=== PATIENT | male | born 1960 | race Caucasian/White ===

== ENCOUNTER 2021-08-15 16:59 | Emergency (ER) | payer OTHER, MEDICARE, SELFPAY ==
[2021-08-15 17:04] VITALS: BP 156/80; PULSE 75; RESP 14; TEMP 36.6; O2SAT 99
--- NOTE | 2021-08-15 17:11 | ED.MALEGU ---
HPI - Male Genitourinary General Chief complaint: Urogenital-Male Stated complaint: poss uti Time Seen by Provider: 08/15/21 17:11 Source: patient and RN notes reviewed History of Present Illness HPI Narrative: Patient is a 61-year-old male who presents the urgent care with complaints of a possible UTI. Patient states that on Tuesday he started to having difficulty with stream, urgency and urinary frequency. Denies of any fever, chills, nausea, vomiting, abdominal pain or back pain. Patient states he has has not been drinking as much water lately. Denies of any history of UTIs. Patient states he did take Azo. No other complaints. No acute distress noted. Patient aware of the plan of care. Some parts of this dictation were generated by voice recognition software and may contain typographical and/or grammatical inaccuracies. Related Data Home Medications Medication Instructions Recorded Confirmed allopurinol 100 mg PO DAILY 08/15/21 08/15/21 allopurinol 300 mg PO DAILY 08/15/21 08/15/21 chlorthalidone 25 mg PO DAILY 08/15/21 08/15/21 clonidine HCl 0.3 mg PO BID 08/15/21 08/15/21 furosemide 40 mg PO DAILY 08/15/21 08/15/21 lisinopril 10 mg PO DAILY 08/15/21 08/15/21 metoprolol succinate 200 mg PO BID 08/15/21 08/15/21 minoxidil See Rx Instructions .ROUTE .COMPLEX 08/15/21 08/15/21 tizanidine 6 mg PO TID 08/15/21 08/15/21 Allergies Allergy/AdvReac Type Severity Reaction Status Date / Time No Known Allergies Allergy Unverified 08/15/21 17:28 Review of Systems Review of Systems: CONSTITUTIONAL: Denies fever, chills, or sweats. EYES: Denies visual changes, redness, or discharge. ENT: Denies rhinorrhea, congestion, sore throat, or otalgia. CARDIOVASCULAR: Denies chest pain, palpitations, or edema. RESPIRATORY: Denies cough or dyspnea. GASTROINTESTINAL: Denies abdominal pain, nausea, vomiting, or diarrhea. GENITOURINARY: Reports of difficulty with urinary stream, frequency and urgency SKIN: Denies rash or itching. MUSCULOSKELETAL: Denies back pain, joint pain, or myalgia. NEUROLOGIC: Denies headache, numbness, or weakness. All other systems reviewed are negative, except as documented in HPI. PMFSH Comments At the time of my signature, I reviewed and agree with the nursing past medical, surgical, social, and family history. There is no relevant family history pertinent to the patient complaint. Exam Narrative: GENERAL: This is a well-nourished, well-developed patient, in no apparent distress. HEAD: normocephalic, atraumatic. EYES: PERRL. Sclera clear/white. Vision is grossly intact. EARS: External ears normal NOSE: External nose normal with no obvious nasal discharge, nares without redness, no rhinorrhea. THROAT: Mucous membranes moist NECK: Neck supple CARDIOVASCULAR: Regular rate and rhythm without murmurs, gallops, or rubs. RESPIRATORY: Clear to auscultation. Breath sounds equal bilaterally. No wheezes, rales, or rhonchi. GASTROINTESTINAL: Abdomen soft, non-tender, nondistended. Bowel sounds are active. SKIN: warm, intact with no suspicious lesions or rash, good texture and turgor. NEURO: awake, alert, and oriented to person, place and time. There were no obvious focal neurologic abnormalities. EXTREMITIES: No clubbing, cyanosis, or edema. BACK: Negative bilateral CVA tenderness Course Course Level of Care: Express Care Visit Vital Signs Vital signs: Vital Signs Temperature 98 F 08/15/21 17:04 Pulse Rate 75 08/15/21 17:04 Respiratory Rate 14 08/15/21 17:04 Blood Pressure 156/80 H 08/15/21 17:04 Pulse Oximetry 99 08/15/21 17:04 Temperature 98 F 08/15/21 17:04 Pulse Rate 75 08/15/21 17:04 Respiratory Rate 14 08/15/21 17:04 Blood Pressure 156/80 H 08/15/21 17:04 Pulse Oximetry 99 08/15/21 17:04 Reviewed-patient is informed that they may have pre-hypertension or hypertension based on a blood pressure reading in the department. I recommend the patient call the primary care
== END 2021-08-15 17:40 | disposition home or self-care (01) ==
PROVIDERS: Emergency Provider Nurse Practitioner Family; PCP Internal Medicine
DX: N39.0 Urinary tract infection, site not specified (principal); I10 Essential (primary) hypertension; M10.9 Gout, unspecified; Z96.653 Presence of artificial knee joint, bilateral
CPT/HCPCS: 81003; 87077; 87086; 87186; 99203; G0463